=== PATIENT | male | born 1985 | race Caucasian/White ===

== ENCOUNTER 2023-07-16 09:38 | Emergency (ER) | payer OTHER, SELFPAY ==
[2023-07-16 09:44] VITALS: BP 131/91; PULSE 74; RESP 20; TEMP 36.7; O2SAT 97; BMI 24.3
--- NOTE | 2023-07-16 09:55 | ECG_ITS ---
The [facility] Test Date: 2023-07-16 Pat Name: VILMA BAKER Department: Room: - Gender: Male [employer]ist: : 1985 Requested By: [id number] Order Number: [id number] Reading MD: VILMA VILLA Measurements Intervals [place] Rate: 68 P: 60 MA: 184 QRS: 249 QRSD: 126 T: 63 QT: 396 QTc: 414 Interpretive Statements 1100 Sinus rhythm 2450 Right bundle branch block 2730 Left posterior fascicular block 3414 Cannot rule out septal myocardial infarction, age undetermined 9150 abnormal ECG No previous ECG available for comparison Electronically Signed On 07-21-2023 7:50:57 EST by VILMA VILLA
--- NOTE | 2023-07-16 09:55 | XR_ITS ---
The [address] [address] Patient Name: VILMA BAKER MRN: [id number] date: 1985 Sex: M Assigned Patient Location: ER Current Patient Location: ER Accession/Order Number: [id number] Exam Date: 07/16/2023 10:40 Report Date: 07/16/2023 10:54 At the request of: YAMIL HOUSER Procedure: XR chest 1V EXAMINATION: XR chest 1V HISTORY: CP, Covid positive COMPARISON: No relevant comparison available. FINDINGS: LUNGS: No significant pulmonary parenchymal abnormalities. VASCULATURE: No increased pulmonary vasculature. PLEURA: No pneumothorax, effusion, or pleural thickening. CARDIAC: No cardiomegaly or cardiac silhouette abnormality. MEDIASTINUM: No visible mass or adenopathy. BONES: No fracture or visible bone lesion. OTHER: Negative. XR/XR chest 1V IMPRESSION: 1. No acute cardiopulmonary process. Electronically authenticated by: ELIA BALL Date: 07/16/2023 10:54
--- NOTE | 2023-07-16 09:56 | ED.CHESTPAI1 ---
HPI - Chest Pain General Chief Complaint: Chest Pain Stated Complaint: COVID POSITIVE CHEST PAIN Time Seen by Provider: 07/16/23 09:42 Source: patient Mode of arrival: walk-in History of Present Illness HPI narrative: 37-year-old male presents to the emergency department for a chief complaint of chest pain. Two days ago he developed some symptoms of cough and congestion yesterday took a home Covid test and it was positive. Today his chest started hurting and it's in a small localized area just to the left of the sternum. No injury or unusual activity. Related Data Home Medications Medication Instructions Recorded Confirmed No Known Home Medications 07/16/23 07/16/23 Allergies Allergy/AdvReac Type Severity Reaction Status Date / Time No Known Drug Allergies Allergy Verified 07/16/23 09:48 Review of Systems ROS Narrative A ten point review of systems is negative except as noted above. Exam Narrative Exam Narrative: Nurses note and vital signs reviewed and patient is not hypoxic. General: The patient appears well and in no apparent distress. Patient is resting comfortably on cart. Skin: Warm, dry, no pallor noted. There is no rash noted. Head: Normocephalic, atraumatic Eye: Normal conjunctiva, no drainage Ears, Nose, Mouth, and Throat: oral mucosa is moist. Nares patent. Cardiovascular: Regular Rate and Rhythm Respiratory: Patient is in no distress, no accessory muscle use, lungs are clear to auscultation, no wheezing, rales or rhonchi, chest wall not tender Back: non-tender GI: Normal bowel sounds, no tenderness to palpation, no masses appreciated. No rebound, guarding, or rigidity noted. Musculoskeletal: The patient has no evidence of calf tenderness, no pitting edema, symmetrical pulses noted bilaterally Neurological: A&O, normal speech Psychiatric: Cooperative Constitutional Vital Signs, click to edit/add: Last Vital Signs Temp 98.0 F 07/16/23 09:44 Pulse 74 07/16/23 09:44 Resp 20 07/16/23 09:44 BP 131/91 07/16/23 09:44 Pulse Ox 97 07/16/23 10:36 O2 Del Method Room Air 07/16/23 10:36 Course Vital Signs Vital signs: Vital Signs Temperature 98.0 F 07/16/23 09:44 Pulse Rate 74 07/16/23 09:44 Respiratory Rate 20 07/16/23 09:44 Blood Pressure 131/91 07/16/23 09:44 Pulse Oximetry 97 07/16/23 09:44 Oxygen Delivery Method Room Air 07/16/23 09:44 Temperature 98.0 F 07/16/23 09:44 Pulse Rate 74 07/16/23 09:44 Respiratory Rate 20 07/16/23 09:44 Blood Pressure 131/91 07/16/23 09:44 Pulse Oximetry 97 07/16/23 10:36 Oxygen Delivery Method Room Air 07/16/23 10:36 MDM - Chest Pain MDM Narrative Medical decision making narrative: Covid test is positive. As well. D-dimer and chest x-ray are negative and he is discharged home. Treatment diagnosis and follow-up were discussed with the patient and his . Differential Diagnosis Differential diagnosis: Likely pneumothorax, atypical chest pain, st elevation myocardial infarction, costochondritis and chest pain Lab Data Attestation: I reviewed the patient's lab results. Labs: Lab Results 07/16/23 Range/Units 10:32 WBC 6.9 (4.0-11.0) 10^3/uL RBC 5.20 (4.70-6.10) 10^6/uL Hgb 14.7 (14.0-18.0) g/dL Hct 45.2 (42.0-54.0) % MCV 86.9 (80.0-94.0) fL MCH 28.3 (25.9-34.0) pg MCHC 32.5 (29.9-35.2) g/dL RDW 12.2 (11.0-15.0) % Plt Count 192 (150-450) 10^3/uL MPV 10.5 (9.5-13.5) fL Neut % (Auto) 53.9 (43.0-75.0) % Lymph % (Auto) 28.3 (20.5-60.0) % [place] % (Auto) 16.8 H (1.7-12.0) % Eos % (Auto) 0.0 L (0.9-7.0) % Baso % (Auto) 0.9 (0.2-2.0) % Neut # (Auto) 3.7 (1.4-6.5) 10^3/uL Lymph # (Auto) 2.0 (1.2-3.8) 10^3/uL [place] # (Auto) 1.2 H (0.3-0.8) 10^3/uL Eos # (Auto) 0.0 (0.0-0.7) 10^3/uL Baso # (Auto) 0.1 (0.0-0.1) 10^3/uL Abs Immat Gran (auto) 0.01 (0.00-0.03) 10^3/uL Imm/Tot Granulo (auto) 0.1 (0.0-0.5) % D-Dimer 0.36 (<=0.59) mg/L FEU Sodium 133 L (136-145) mmol/L Potassium 4.6 (3.5-5.1) mmol/L Chloride 100 (98-107) mmol/L Carbon Dioxide 26.4 (21.0-32.0) mmol/L Anion Gap 11.2 BUN 14.0 (7.0-18.0) mg/dL Creatinine 1.34 H (0.70-1.30) mg/dL Est GFR ( Amer) >60 (>=60) Est GFR (Non-Af Amer) >60 (>=60) BUN/Creatinine Ratio 10.4 Glucose 83 (74-106) mg/dL Calcium 9.1 (8.5-10.1) mg/dL SARS-CoV-2 (PCR) Positive A (NEGATIVE) Imaging Data Chest x-ray: Radiologist's impression: Procedure: XR chest 1V EXAMINATION: XR chest 1V HISTORY: CP, Covid positive COMPARISON: No relevant comparison available. FINDINGS: LUNGS: No significant pulmonary parenchymal abnormalities. VASCULATURE: No increased pulmonary vasculature. PLEURA: No pneumothorax, effusion, or pleural thickening. CARDIAC: No cardiomegaly or cardiac silhouette abnormality. MEDIASTINUM: No visible mass or adenopathy. BONES: No fracture or visible bone lesion. OTHER: Negative. IMPRESSION: 1. No acute cardiopulmonary process. Electronically authenticated by: ELIA BALL Date: 07/16/2023 10:54 ECG Data Attestation: I personally reviewed and interpreted this ECG as follows: (EKG on my interpretation shows sinus rhythm without acute change. Right bundle-branch block present) Heart Score History: Slightly/Non-Suspicious ECG: Normal Age: <45 years Risk Factors: No Risk Factors Troponin: <Normal Limit Total Heart Score Recommendations & Risks:: 0 Discharge Plan Discharge Chief Complaint: Chest Pain Clinical Impression: COVID-19 Patient Disposition: Home, Self-Care Time of Disposition Decision: 11:09 Condition: Good Mode of Transportation: Private Vehicle Prescriptions / Home Meds: No Action No Known Home Medications Instructions: COVID-19 (Coronavirus Disease 2019) (ED), COVID-19: Slow the Coronavirus Spread (ED), Face Coverings (Masks) and COVID-19 (ED), How to Recover from COVID-19 at Home (ED) Stand Alone Forms: Portal Instructions Referrals: Adal Osborn MD [Primary Care Provider] - 1 week
[2023-07-16 10:36] VITALS: O2SAT 97
[2023-07-16 10:44] LABS: Basophils Absolute Auto 0.1 10^3/uL (0.0-0.1); Basophils Percent Auto 0.9 % (0.2-2.0); Hematocrit 45.2 % (42.0-54.0); Hemoglobin 14.7 g/dL (14.0-18.0); Immature Granulocytes Abs Auto 0.01 10^3/uL (0.00-0.03); Immature Granulocytes Pct Auto 0.1 % (0.0-0.5); Lymphocytes Percent Auto 28.3 % (20.5-60.0); Mean Corpuscular HGB Conc 32.5 g/dL (29.9-35.2); Mean Corpuscular Hemoglobin 28.3 pg (25.9-34.0); Mean Corpuscular Volume 86.9 fL (80.0-94.0); Mean Platelet Volume 10.5 fL (9.5-13.5); Monocytes Absolute Auto 1.2 10^3/uL (0.3-0.8); Monocytes Percent Auto 16.8 % (1.7-12.0); Neutrophils Absolute Auto 3.7 10^3/uL (1.4-6.5); Neutrophils Percent Auto 53.9 % (43.0-75.0); Platelet Count 192 10^3/uL (150-450); Red Cell Distribution Width 12.2 % (11.0-15.0); White Blood Count 6.9 10^3/uL (4.0-11.0)
[2023-07-16 10:53] LABS: Anion Gap 11.2; BUN Creatinine Ratio 10.4; Calcium 9.1 mg/dL (8.5-10.1); Carbon Dioxide 26.4 mmol/L (21.0-32.0); Chloride 100 mmol/L (98-107); Estimated GFR (African America >60 (>=60); Estimated GFR (Non-African Ame >60 (>=60); Glucose 83 mg/dL (74-106); Potassium 4.6 mmol/L (3.5-5.1); Sodium 133 mmol/L (136-145)
[2023-07-16 10:58] LABS: D Dimer 0.36 mg/L FEU (<=0.59)
[2023-07-16 10:59] LABS: SARS-CoV-2 Ag POSITIVE (NEGATIVE)
== END 2023-07-16 11:22 | disposition home or self-care (01) ==
PROVIDERS: Emergency Provider Emergency Medicine; PCP Family Medicine
DX: U07.1 COVID-19 (principal); R07.9 Chest pain, unspecified
CPT/HCPCS: 36415; 71045; 80048; 85025; 85378; 87811; 93005; 99285

== ENCOUNTER 2023-11-04 19:54 | Outpatient (OUT) | payer OTHER, SELFPAY ==
--- OUTSIDE RECORDS SUMMARY | 2023-11-04 19:57 | XMS_ITS | CCD ---
Author Organization [facility] Care Team Providers Care Associate Financial Representative Name Role Phone REQUEST, DR NONE LISTED Primary Care Unavaila ANN Preciado Attending Unavailable ANN ALAN Consulting Unavailable ANN ALAN Admitting Unavailable Problems Problem Classification Problem Date Documented Da te Episodic/Chronic E Codes: Cut/pierceb (1 source) Contact with workbench tool, initial encounter; Translations: [CONTACT W/WORKBENCH TOOL INIT ENC] Onset: 01-14-2022 Episodic Immunizations and screening for infectious disease (1 source) Encounter for immunization; Translations: [ENCOUNTER FOR IMMUNIZATION] Onset: 01-14-2022 Episodic Open wounds of extremities (4 sources) Laceration without foreign body of right little finger without damage to nail, initial encounter; Translations: [LAC W/O FB RT LF W/O DMG NAIL INIT] Onset: 01-11-2022 Episodic Encounters Encounter Date Encounter Type Care Provider Facility Start: 01-11-2022 End: 01-11-[address] NONE LISTED REQUEST Facility: Payers Date Payer Category Payer Unknown [id number] 1957 Self-pay [id number] Summary Purpose Family History No Family History Records Found Advance Directives No Advanced Directives Records Found Additional Source Comments (unrecognized sect ion and content) No Status Records Found INFORMATION SOURCE (unrecogn ized section and content) DATE CREATED AUTHOR 01/14/2022 The Nikki geronimoal FOR RECORDS PERTAINING TO PATIENTS WHO ARE OR HAVE BEEN ENROLLED IN A CHEMICAL DEPENDENCY/SUBSTANCEABUSE PROGRAM, SOME INFORMATION MAY BE OMITTED. This clinical summary was aggregated from multiple sources. Caution should be exercised in using it in the provision of clinical care. This summary normalizes information from multiple sources, and as a consequence, information in this document may materially change the coding, format and clinical context of patient data. In addition, data may be omitted in some cases. CLINICAL DECISIONS SHOULD BE BASED ON THE PRIMARY CLINICAL RECORDS. [facility]. provides no warranty or guarantee of the accuracy or completeness of information in this document.
== END 2023-11-04 19:55 | disposition home or self-care (01) ==
LOC: SLEEP 19:54
PROVIDERS: PCP Nurse Practitioner Family; Visit Provider Nurse Practitioner Family
DX: G47.33 Obstructive sleep apnea (adult) (pediatric) (principal)
CPT/HCPCS: 95810

== ENCOUNTER 2023-11-11 20:46 | Outpatient (OUT) | payer OTHER, SELFPAY ==
--- OUTSIDE RECORDS SUMMARY | 2023-11-11 20:50 | XMS_ITS | CCD ---
Author Organization [facility] Care Team Providers Care Rock Worker Name Role Phone REQUEST, DR NONE LISTED [...] Facility: Payers Date Payer Category Payer Unknown [id number] 1957 Self-pay [id number] Summary Purpose Family History No Family History [...] BE BASED ON THE PRIMARY CLINICAL RECORDS. [facility]. provides no warranty or guarantee of the accuracy or completeness of information in this document.
== END 2023-11-11 20:47 | disposition home or self-care (01) ==
LOC: SLEEP 20:46
PROVIDERS: PCP Nurse Practitioner Family; Visit Provider Nurse Practitioner Family
DX: G47.33 Obstructive sleep apnea (adult) (pediatric) (principal); G47.59 Other parasomnia
CPT/HCPCS: 95811

== ENCOUNTER 2024-07-21 04:15 | Emergency (ER) | payer OTHER, SELFPAY ==
[2024-07-21 04:20] VITALS: BP 134/87; PULSE 81; TEMP 36.6; O2SAT 99; BMI 25.8
--- OUTSIDE RECORDS SUMMARY | 2024-07-21 04:23 | XMS_ITS | CCD ---
Author Organization [facility] Care Team Providers Care Diagnostic Technologist Name Role Phone REQUEST, DR NONE LISTED Primary Care Unavaila ANN Preciado Attending Unavailable ANN ALAN Consulting Unavailable ANN ALAN Admitting Unavailable Britton Nuñez Attending Unavailab Britton Dale Admitting Unavailab leticia ROYAL FAMILY, PHYSICIAN Primary Care Unavailable REECE BEATTY Attending Unavailable Tani SOTO, Bita Unavailable Adal Osborn MD Primary Care Provider [phone] Problems Problem Classification Problem Date Documented Da [...] W/O DMG NAIL INIT] Onset: 01-11-2022 Episodic Other lower respiratory disease (2 sources) Snoring; Translations: [Snoring] 04-12-2024 Episodic Residual codes; unclassified (2 sources) Obstructive sleep apnea syndrome; Translations: [Obstructive sleep apnea (adult) (pediatric)] 04-12-2024 Chronic Residual codes; unclassified (2 sources) Hypersomnia; Translations: [Hypersomnia, unspecified] 04-12-2024 Chronic Residual codes; unclassified (2 sources) REM sleep behavior disorder; Translations: [REM sleep behavior disorder] 04-12-2024 Chronic Residual codes; unclassified (2 sources) Sleeptalking; Translations: [Other sleep disorders] 04-12-2024 Chronic Vital Signs Date Time Vital Sign Value Performing Clinician Philip pelayo 04-12-2024 09:43-0400 Diastolic blood pressure 78 mm[Hg] Reece Beatty DO Work Phone: [facility] 04-12-2024 09:43-0400 Heart rate 86 /min Reece Slava DO Work Phone: [facility] 04-12-2024 09:43-0400 SaO2% (BldA) [Mass fraction] 99 % Reece Slava DO Work Phone: [facility] 04-12-2024 09:43-0400 Systolic blood pressure 136 mm[Hg] Reece Slava DO Work Phone: [facility] Encounters Encounter Date Encounter Type Care Provider Facility Start: 04-12-2024 End: 04-12-2024 Office consultation new/estab patient 60 min Reece Buchananner DO Work Phone: [facility] Comment on above: SHUN (obstructive sle ep apnea); Hypersomnia; REM sleep behavior disorder; Sleep talking; Snoring Start: 04-12-2024 End: 04-12-2024 ambulatory REECE BEATTY Not Available Start: 11-20-2023 ambulatory Britton Jackson acility:[facility] Start: 01-11-2022 End: 01-11-[address] NONE LISTED REQUEST Facility: Plan of Treatment Date Care Activity Detail Author Start: 10-04-2024 End: 10-04-2024 Patient encounter procedure 10/04/2024 5:45 PM EDT Office Visit [facility] [address] [place] [id number] Reece Beatty DO [address] [place], [place] [id number] [facility] Immunizations Immunization Date Immunization Notes Care Provider Fa cility 01-11-2022 diphtheria, tetanus toxoids and pertussis vaccine Reece Slava DO Work Phone: [facility] 03-06-2000 hepatitis B vaccine, pediatric or pediatric/adolescent dosage Reece Slava DO Work Phone: [facility] 03-06-2000 measles, mumps and rubella virus vaccine Reece Slava DO Work Phone: [facility] 02-14-1993 diphtheria, tetanus toxoids and acellular pertussis vaccine, unspecified formulation Reece Slava DO Work Phone: [facility] 02-14-1993 poliovirus vaccine, inactivated Reece Slava DO Work Phone: [facility] 08-11-1989 diphtheria, tetanus toxoids and pertussis vaccine Reece Slava DO Work Phone: [facility] 08-11-1989 measles, mumps and rubella virus vaccine Reece Slava DO Work Phone: [facility] 08-11-1989 poliovirus vaccine, inactivated Reece Slava DO Work Phone: [facility] 06-30-1988 diphtheria, tetanus toxoids and pertussis vaccine Reece Slava DO Work Phone: [facility] 04-02-1988 diphtheria, tetanus toxoids and pertussis vaccine Reece Slava DO Work Phone: [facility] 04-02-1988 poliovirus vaccine, inactivated Reece Slava DO Work Phone: [facility] 1987 diphtheria, tetanus toxoids and pertussis vaccine Reece Slava DO Work Phone: [facility] 1987 poliovirus vaccine, inactivated Reece Slava DO Work Phone: [facility] Payers Date Payer Category Payer Self-pay 2023 Unknown [employer] [facility] [facility] [employer] [id number] 2023-Present [address] [place] [address] [id number] 2023 Unknown [id number] 1987 Unknown [id number] 1987 Unknown [id number] 1959 Self-pay [id number] Unknown [id number] Social History Date Type Detail Facility Start: 04-10-2024 Tobacco smoking stat [facility] Ex-smoker [facility] History of tobacco use Current smoker [facility] History of tobacco use Cigarette Smoker [facility] Start: 04-10-2024 Cigarettes smoked cu rrent (pack per day) - Reported 0.5 [facility] Start: 04-10-2024 Tobacco use and exposure User of smo keless tobacco [facility] Start: 04-12-2024 Alcoholic beverage intake Curr ent drinker of alcohol (finding) [facility] Start: 04-10-2024 Tobacco use panel [facility] Start: 1987 Sex assigned at Not on file [facility] History of Present illness Narrative 04-12-2024 Reece Beatty, - 04/12/2024 9:45 AM EDT Note Date & Type Note Facility 04-12-2024 History of Presen t illness Narrative Images from the original note were not included. Chief Complaint Patient presents with Sleep Apnea Subjective Adal Pal Jr, 38 y.o., male being seen in Neurology consultation at the request of Bita Freire NP. HPI Sleep ND He was having issues with disrupted sleep and may have been acting out his dreams. He was not tired during the day. He would not doze off. He did not have witnessed episodes of apnea. Since he has had the machine he has not been acting out his dreams. It was rare prior to this. Since having the machine he has not been snoring. The patient has a CPAP machine. He is till trying to get used to the mask. He would like to look in to a mask that is not full face. He has tried the nose mask and that one did not work for him. He states that he changed the filter and got a message the next day that his filter needed changed again. He is going to bed at 10pm and it can take him a little while to fall asleep, 30-60 mintues. If he cannot fall asleep in 1.5 hours he will take the mask off and go to bed. He will wake up around 6am. He states that he feels tired when he gets up. He hits snooze on his alarm a couple of times before he gets up. Patient Symptoms Snores: Yes before CPAP Wakes gasping for breath: No Dozes off if inactive: No Dozes off with activity: No Wakes a lot through the night: No Witnessed episodes of apnea: No Is sleep restful or restorative: Yes Bedtime: 10pm Is it hard or easy to fall asleep: Hard Takes naps: No Feels better after napping: Sleepwalk: No Sleeptalk: Yes Vivid Dreams: Yes Acts out dreams: Yes Sleep related hallucinations: Yes Sleep paralysis: No Cataplexy: Restless Leg: Yes Kicking/Jerking at night: No TV on while sleeping: No Smoke before bed: Quit smoking uses Nicotine pen 1-2 hours before bed Caffeine within 3 hours before bed: Sometimes, Pepsi Past Medical History: Diagnosis Date Heart murmur as a child surgically repaired Past Surgical History: Procedure Laterality Date CARDIAC SURGERY heart murmur when 14 years old Family History Problem Relation Name Age of Onset Ovarian cancer Mother Other (triple bypass) Father Sleep apnea Father Emphysema Father Heart attack Maternal Grandfather Heart attack Paternal Grandmother Cancer Paternal Grandfather Cancer Other maternal aunt Social History Tobacco Use Smoking status: Former Current packs/day: 0.50 Average packs/day: 0.5 packs/day for 15.0 years (7.5 ttl pk-yrs) Types: Cigarettes Smokeless tobacco: Current Substance Use Topics Alcohol use: Yes Allergies: Patient has no known allergies. General: No fever or chills HEENT: No nasal congestion or runny nose Pulmonary: No shortness of breath or cough Cardiovascular: No chest pain or palpitations GI: No nausea or vomiting : No dysuria or hematuria Musculoskeletal: No new aches or pains or muscle weakness Infectious: no recurrent fevers or infections Dermatologic: No rashes or skin lesions Neurologic: No new headaches or dizziness Vitals: 04/12/24 0943 BP: 136/78 Pulse: 86 SpO2: 99% There is no height or weight on file to calculate BMI. Neurologic exam: General: Normal body habitus, cooperative, pleasant Mental status: Awake, alert to person, place and time. Recent and remote memory are intact. Attention and concentration are normal. Fund of knowledge is appropriate for level of education. HEENT: NC/AT Cranial nerves: CN II: Visual marie full to confrontation. No loss of vision CN III, IV, : pupils equal round and reactive to light. Extraocular movements intact. No ptosis present. CN V: Facial sensation is normal. CN VII: Full and symmetric facial movement. CN VIII: Hearing is normal CN IX and X: Palate elevates symmetrically. CN XI: Shoulder shrug is normal bilaterally. CN XII: Tongue is midline without atrophy or fasciculation. Speech: Clear and fluent no aphasia or dysarthria Pronator drift: Negative bilateral upper extremity Coordination: Intact, no signs of dysmetria Good finger to nose and rapid alternating movements Sensory: Sensation is intact to light, temperature and vibratory touch throughout four extremities. Motor: LUE 5/5 RUE 5/5 LLE 5/5 RLE 5/5 Tone: Physiologic, no tremor, bradykinesia or rigidity DTR: Bilateral Biceps 2/4 Bilateral BR 2/4 Bilateral Patellar 2/4 No spasticity Gait: Normal to casual gait Romberg's Negative Review and summary of old records: Assessment/Plan Diagnoses and all orders for this visit: SHUN (obstructive sleep apnea) Hypersomnia REM sleep behavior disorder Sleep talking Snoring 38-year-old male with a mild obstructive sleep apnea with an apnea-hypopnea index of 11 leading to daytime hypersomnolence and snoring. Patient was brought back and titrated onto CPAP at 9 cm of water and this did appear to work well for him. Now has a CPAP machine and he is compliant with it he is using it 70 percent of the time greater than 4 hours with an average nightly usage of 4 hours and 55 minutes and residual AHI of 1.1. Putting the machine on 99 percent of the time but is having some mask issues. He may benefit from a trial of a DreamWear full facemask and see if that works better for him. He was doing much better in December when he 1st got the machine and has dropped off some since then. I am hopeful if he finds a more comfortable mask that the usage will go up again. He was counseled on the usage of the machine and wearing it. Patient was sent actually because he was having what he thinks was some parasomnias sounds like he was possibly having some REM behavior disorder versus just talking in his sleep. He denies having any of those events since he has had his machine. He is getting some benefit from it granted he was not overly sleepy prior to this. We will watch for any further parasomnias. Does have some evidence that could be consistent with a periodic limb movement disorder as he had 106 limb movements on his PSG and 75 limb movements on his titration study. He denies moving around a lot and wants to hold on any further medication at this time but we can certainly consider something if he is still having some sleep disruptions. He was offered a medicine to help put him to sleep at some days he has a hard time falling asleep with the machine on but he wants to hold and try a new mask 1st. He does have some facial hair and has to trim it short in order for the mask seal. Plan PSG reviewed Titrations study reviewed Compliance data reviewed and is compliant as above Offered meds for sleep and PLMD but he wants to hold at this time Do a trial of dreamwear full face mask with DME Can try mask liners Get machine on every night Watch for new parasomnias The patient was counseled on proper sleep hygiene and adequate hours of sleep. The patient was counseled on the risks of stroke, MN, and sudden with SHUN, along with the need for compliance with the CPAP/BiPAP treatment. The diagnosis was all discussed with the patient. All questions were answered and they agreed with the treatment plan. Patient will call if there are any new issues or questions. Pt has been fully educated on their diagnosis, treatment options, follow up plan, and return instructions Return to clinic: 6 months documented in this encounter [facility] Evaluation note Note Date & Type Note Facility Evaluation note Diagnosis SHUN (obstructive sleep apnea) Obstructive sleep apnea (adult) (pediatric) Hypersomnia Hypersomnia, unspecified REM sleep behavior disorder Sleep talking Other dysfunctions of sleep stages or arousal from sleep Snoring Other dyspnea and respiratory abnormality documented in this encounter [facility] Summary Purpose Family History No Family History Records FoundNo Family History Records FoundNo Family History Records Found Advance Directives No Advanced Directives Records FoundNo Advanced Directives Records FoundNo Advanced Directives Records Found Additional Source Comments (unrecognized sect ion and content) No Status Records FoundNo Status Records FoundNo Status Records Found INFORMATION SOURCE (unrecogn ized section and content) DATE CREATED AUTHOR 01/14/2022 [facility] DATE CREATED AUTHOR AUTHOR'S ORGANIZ ATION 12/19/2023 [facility] DATE CREATED AUTHOR AUTHOR'S ORGANIZ ATION 04/14/2024 [facility] Reason for Visit (unrecogniz ed section and content) Reason Comments Sleep Apnea Care Teams (unrecognized sec tion and content) Diagnostic Technologist Relationship Specialty Start Date End Date Adal Osborn MD [address] [place] [address] PCP - General 04/12/24 Bita Freire MD [address] [place] [id number] Referring Physician Family Medicine 03/30/24 FOR RECORDS PERTAINING TO PATIENTS WHO ARE [...] BE BASED ON THE PRIMARY CLINICAL RECORDS. [facility]. provides no warranty or guarantee of the accuracy or completeness of information in this document.
--- NOTE | 2024-07-21 04:31 | ED_ITS ---
HPI - Allergic Reaction General Chief complaint: Skin/Abscess/Foreign Body Stated complaint: SKIN IRRITATION Time Seen by Provider: 07/21/24 04:26 Source: patient Mode of arrival: walk-in Limitations: no limitations History of Present Illness HPI narrative: Pt developed itchy red hive like reaction to unknown source a few days ago and is intermittently getting symptoms. This morning it has developed across his to rso. The patient is uncertain what might have set this off. He has a friend, who is a nurse and told him that if he has trouble breathing or swallowing or his throat hurts, he needs to go to the ER. He also has a mild cough and when he woke this morning with a scratchy throat, he came in for evaluation. Related Data Previous Rx's ?Medication ?Instructions ?Recorded prednisone 20 mg tablet 40 mg (2 x 20 mg) PO DAILY 7 days 07/21/24 #14 tabs Allergies Allergy/AdvReac Type Severity Reaction Status Date / Time No Known Drug Allergies Allergy Verified 07/21/24 04:23 PFSH PFSH Social History Little interest or pleasure in doing things: not at all Feeling down, depressed, or hopeless: not at all Exam Narrative Exam Narrative: Nurses notes and vital signs reviewed and patient is not hypoxic. afebrile General: Well-appearing and in no apparent distress. Skin: Warm, dry, no pallor noted. Chest and abdomen with hive-jhoan erythematous wheel and flare reaction. Head: Normocephalic, atraumatic. Neck: Supple, non-tender. Eye: Pupils are equal, round and EOMI. No scleral icterus. Ears, Nose, Mouth, and Throat: No posterior oropharynx erythema, uvula is mid- line. Oral mucosa is moist Cardiovascular: Regular Rate and Rhythm without murmur, gallop or rub. Respiratory: No accessory muscle use or respiratory distress. Lungs are clear to auscultation, no wheezing, rales or rhonchi Musculoskeletal: normal ROM, no calf or popliteal tenderness, no lower extremity edema/swelling GI: Abdomen is soft, non-distended. Normal bowel sounds. No tenderness to palpation. No rebound, guarding, or rigidity noted. Neurological: A&O x4. No cranial nerve dysfunction observed. No truncal ataxia. Moves all extremities. Sensation intact. Psychiatric: Cooperative and interactive. Normal mood and affect. Constitutional Vital Signs, click to edit/add: Last Vital Signs Temp 98 F 07/21/24 04:20 Pulse 81 07/21/24 04:20 Resp 16 07/21/24 04:20 BP 134/87 07/21/24 04:20 Pulse Ox 99 07/21/24 04:20 O2 Del Method Room Air 07/21/24 04:20 Course Vital Signs Vital signs: Vital Signs Temperature 98 F 07/21/24 04:20 Pulse Rate 81 07/21/24 04:20 Respiratory Rate 16 07/21/24 04:20 Blood Pressure 134/87 07/21/24 04:20 Pulse Oximetry 99 07/21/24 04:20 Oxygen Delivery Method Room Air 07/21/24 04:20 Temperature 98 F 07/21/24 04:20 Pulse Rate 81 07/21/24 04:20 Respiratory Rate 16 07/21/24 04:20 Blood Pressure 134/87 07/21/24 04:20 Pulse Oximetry 99 07/21/24 04:20 Oxygen Delivery Method Room Air 07/21/24 04:20 MDM - Allergic Reaction MDM Narrative Medical decision making narrative: Pt given IM Solumedrol and discharged home with prescription for oral prednisone. he was encouraged to take oral Benadryl as well and first dose was given in the ED. Discharge Plan Discharge Chief Complaint: Skin/Abscess/Foreign Body Clinical Impression: Urticaria Patient Disposition: Home, Self-Care Time of Disposition Decision: 04:35 Prescriptions / Home Meds: New prednisone 20 mg tablet 40 mg PO DAILY 7 Days Qty: 14 0RF Print Language: [place] Citizen Instructions: Urticaria (ED) Referrals: MEME NAVARRO [Primary Care Provider] - 1 week
[2024-07-21] MEDS: METHYLPREDNISOLONE SOD SUCC PF 125 MG/2 ML VIAL IM (04:53)
[2024-07-21] MEDS: DIPHENHYDRAMINE HCL 25 MG CAPSULE PO (05:00)
== END 2024-07-21 05:08 | disposition home or self-care (01) ==
PROVIDERS: Emergency Provider Emergency Medicine; PCP Nurse Practitioner Family
DX: L50.9 Urticaria, unspecified (principal)
CPT/HCPCS: 96372; 99284; J2919